=== PATIENT | female | born 1965 | race Caucasian/White ===

== ENCOUNTER → 2016-10-28 | Outpatient (CLI) | payer OTHER ==
[~2016-10-28] MED LIST: METOPROLOL TARTRATE 5 MG/5 ML VIAL. ONE
== END | disposition home or self-care (01) ==
LOC: PCVCIMAG 08:26
PROVIDERS: ATTEND Internal Medicine Cardiovascular Disease
DX: I48.91 Unspecified atrial fibrillation (principal); I07.1 Rheumatic tricuspid insufficiency; E78.5 Hyperlipidemia, unspecified; I10 Essential (primary) hypertension; R00.0 Tachycardia, unspecified; R53.83 Other fatigue; R06.02 Shortness of breath
CPT/HCPCS: 93306; 96374; J3490

== ENCOUNTER → 2017-02-18 | Outpatient (CLI) | payer OTHER | END | disposition home or self-care (01) | LOC: PCVCIMAG 14:49 | PROVIDERS: ATTEND Internal Medicine Cardiovascular Disease | DX: I08.1 Rheumatic disorders of both mitral and tricuspid valves (principal); I48.91 Unspecified atrial fibrillation | CPT/HCPCS: 93017; 93306; J3490 ==

== ENCOUNTER → 2017-08-18 | Outpatient (CLI) | payer OTHER ==
--- NOTE | 2017-08-18 17:09 | PCVCIMAG ---
APPROVED REPORT Study performed: 08/18/2017 14:38:08 EXAM: Comprehensive 2D, Doppler, and color-flow Echocardiogram Patient Location: Echo lab Status: routine BSA: 2.19 HR: 79 bpmBP: 154/84 mmHg Rhythm: NSR Other Information Study Quality: Good Indications Atrial Fibrillation Hypertension/HDD Hyperlipidemia. 2D Dimensions LVEF(%): 37.06 (>50%) IVSd: 11.55 (7-11mm)LVOT Diam: 20.11 (18-24mm) LVDd: 52.83 mm PWd: 9.42 (7-11mm)Ascending Ao: 36.41 (22-36mm) LVDs: 43.32 (25-40mm) Left Atrium: 45.21 (27-40mm) Aortic Root: 28.85 mm Yang's LVEF: 37.06 % Volumes Left Atrial Volume (Systole) Single Plane 4CH: 81.03 mLSingle Plane 2CH: 76.32 mL LA ESV Index: 39.00 mL/m2 Aortic Valve AoV Peak Nate.: 1.54 m/s AO Peak Gr.: 9.47 mmHgLVOT Max P.33 mmHg LVOT Max V: 1.04 m/s KOMAL Vmax: 2.15 cm2 Mitral Valve E/A Ratio: 1.0 MV Decel. Time: 105.69 ms MV E Max Nate.: 0.97 m/s MV A Nate.: 1.02 m/s IVRT: 79.58 ms TDI E/Lateral E': 6.93E/Medial E': 8.82 Medial E' Nate.: 0.11 m/s Lateral E' Nate.: 0.14 m/s Pulmonary Valve PV Peak Gr.: 4.00 mmHg Pulmonary Vein P Vein S: 0.55 m/sP Vein A: 0.29 m/s P Vein D: 0.43 m/sP Vein A Dur.: 72.7 msec P Vein S/D Ratio: 1.28 Tricuspid Valve TR Peak Nate.: 2.71 m/s TR Peak Gr.: 29.27 mmHg Left Ventricle The left ventricle is normal size. There is normal LV segmental wall motion. There is normal left ventricular wall thickness. Left ventricular systolic function is normal. The left ventricular ejection fraction is within the normal range. LVEF is 55-60%. The left ventricular diastolic function is normal. Right Ventricle The right ventricle is normal size. The right ventricular systolic function is normal. Atria Left atrium is mildly dilated. The right atrium size is normal. Aortic Valve The aortic valve is normal in structure. No aortic regurgitation is present. There is no aortic valvular stenosis. Mitral Valve The mitral valve is normal in structure. Trace mitral regurgitation. No evidence of mitral valve stenosis. Tricuspid Valve The tricuspid valve is normal in structure. Trace tricuspid regurgitation. Pulmonary artery pressure is 37mmhg. Pulmonic Valve The pulmonary valve is normal in structure. There is no pulmonic valvular regurgitation. Great Vessels The aortic root is normal in size. IVC is normal in size and collapses with >50% inspiration Pericardium There is no pericardial effusion. <Conclusion> The left ventricle is normal size. LVEF is 55-60%. The left ventricular diastolic function is normal. The right ventricle is normal size. Left atrium is mildly dilated. No aortic regurgitation is present. Trace mitral regurgitation. Trace tricuspid regurgitation. Pulmonary artery pressure is 37mmhg. There is no pericardial effusion.
== END | disposition home or self-care (01) ==
LOC: PCVCIMAG 14:21
PROVIDERS: ATTEND Internal Medicine Cardiovascular Disease
DX: I48.91 Unspecified atrial fibrillation (principal); I10 Essential (primary) hypertension; E78.00 Pure hypercholesterolemia, unspecified
CPT/HCPCS: 93306

== ENCOUNTER → 2018-06-28 | Outpatient (CLI) | payer OTHER ==
--- NOTE | 2018-06-28 12:48 | PCVCIMAG ---
APPROVED REPORT Study performed: 06/28/2018 10:58:30 EXAM: Comprehensive 2D, Doppler, and color-flow Echocardiogram Patient Location: Echo lab Status: routine BSA: 2.17 HR: 85 bpmBP: 170/90 mmHg Rhythm: NSR Other Information Study Quality: Adequate Risk Factors: Cardiac Risk Factors: HTN, Hyperlipidemia Indications Atrial Fibrillation obesity 2D Dimensions IVSd: 11.05 (7-11mm) LVDd: 45.38 mm PWd: 9.94 (7-11mm)Ascending Ao: 36.21 (22-36mm) LVDs: 30.22 (25-40mm) Left Atrium: 49.72 (27-40mm) Aortic Root: 32.11 mm LV Single Plane 4CH: 61.31 % LV Single Plane 2CH: 51.06 % Biplane EF: 54.7 % Volumes Left Atrial Volume (Systole) Single Plane 4CH: 100.48 mLSingle Plane 2CH: 79.60 mL LA ESV Index: 45.00 mL/m2 Aortic Valve AoV Peak Nate.: 1.51 m/s AO Peak Gr.: 9.15 mmHgLVOT Max P.35 mmHg LVOT Max V: 1.04 m/s Mitral Valve E/A Ratio: 0.9 MV Decel. Time: 239.20 ms MV E Max Nate.: 0.55 m/s MV A Nate.: 0.61 m/s MV PHT: 69.37 ms IVRT: 86.51 ms Pulmonary Valve PV Peak Nate.: 1.31 m/sPV Peak Gr.: 6.84 mmHg Pulmonary Vein P Vein S: 0.62 m/sP Vein A: 0.31 m/s P Vein D: 0.59 m/sP Vein A Dur.: 110.7 msec P Vein S/D Ratio: 1.05 Tricuspid Valve TR Peak Nate.: 2.74 m/s TR Peak Gr.: 29.99 mmHg TV Vmax: 0.53 m/s Left Ventricle The left ventricle is normal size. There is normal LV segmental wall motion. There is normal left ventricular wall thickness. Left ventricular systolic function is normal. The left ventricular ejection fraction is within the normal range. LVEF is 55-60%. The left ventricular diastolic function is normal. Right Ventricle The right ventricle is normal size. The right ventricular systolic function is normal. Atria Left atrium is moderately dilated. The right atrium size is normal. Aortic Valve The aortic valve is normal in structure. No aortic regurgitation is present. There is no aortic valvular stenosis. Mitral Valve The mitral valve is normal in structure. Mild mitral regurgitation. No evidence of mitral valve stenosis. Tricuspid Valve The tricuspid valve is normal in structure. Mild tricuspid regurgitation with PAP of 37 mmHg. Pulmonic Valve The pulmonary valve is normal in structure. There is no pulmonic valvular regurgitation. Great Vessels The aortic root is normal in size. IVC is normal in size and collapses >50% with inspiration. Pericardium There is no pericardial effusion. There is no pleural effusion. <Conclusion> The left ventricle is normal size. LVEF is 55-60%. The right ventricle is normal size. Left atrium is moderately dilated. The aortic valve is normal in structure. Mild mitral regurgitation. Mild tricuspid regurgitation with PAP of 37 mmHg. The aortic root is normal in size. There is no pericardial effusion.
== END | disposition home or self-care (01) ==
LOC: PCVCIMAG 11:08
PROVIDERS: ATTEND Internal Medicine Cardiovascular Disease
DX: I08.1 Rheumatic disorders of both mitral and tricuspid valves (principal); I48.91 Unspecified atrial fibrillation; I10 Essential (primary) hypertension
CPT/HCPCS: 93306